=== PATIENT | female | born 1985 | race Hispanic/Latino ===

== ENCOUNTER 2022-10-16 21:51 | Emergency (ER) | payer SELFPAY ==
[~2022-10-16] VITALS: Ht 160 cm; Wt 81.6 kg
[2022-10-16] MEDS ORDERED: TRAMADOL HCL 50 MG TAB PO STA (23:29)
[2022-10-16] MEDS ORDERED: ULTRAM 50MG50 MG PO (23:33)
[2022-10-16] MEDS ORDERED: TRAMADOL HCL 50 MG TAB ONE (23:48)
== END 2022-10-16 23:36 | disposition home or self-care (01) ==
LOC: ER 22:20
DX: M25.561 Pain in right knee (principal); Z88.1 Allergy status to other antibiotic agents
CPT/HCPCS: 99283

== ENCOUNTER 2022-11-29 02:58 | Emergency (ER) | payer SELFPAY ==
[~2022-11-29] VITALS: Ht 160 cm; Wt 81.6 kg
[~2022-11-29 02:58] MED LIST: ULTRAM 50MG50 MG PO
[2022-11-29] MEDS ORDERED: ONDANSETRON HCL 4 MG ORAL DISINTEGRATING TAB ONE ×2 (03:03→03:13)
[2022-11-29] MEDS ORDERED: ONDANSETRON HCL 4 MG ORAL DISINTEGRATING TAB PO ONE (03:15)
[2022-11-29] MEDS ORDERED: ONDANSETRON ODT4 MG PO (04:13)
== END 2022-11-29 04:26 | disposition home or self-care (01) ==
LOC: ER 03:03
DX: R11.2 Nausea with vomiting, unspecified (principal)
CPT/HCPCS: 99283; Q0162

== ENCOUNTER 2024-10-08 18:41 | Emergency (ER) | payer SELFPAY ==
[~2024-10-08] VITALS: Ht 160 cm; Wt 81.6 kg
[~2024-10-08 18:41] MED LIST changes: +ONDANSETRON ODT4 MG PO
[2024-10-08 19:14] VITALS: PULSE 88; RESP 16; TEMP 99.6; O2SAT 99
[2024-10-08] MEDS: SODIUM CHLORIDE 0.9% 1000ML 1,000 ML IV ONE ×2 (19:29→19:37)
[2024-10-08] MEDS: ACETAMINOPHEN 325 MG TAB PO ONE (19:29)
[2024-10-08 19:46] LABS: BASOPHILS % 0.6 % (0.0-1.0); EOSINOPHILS # (AUTO) 0.1 (0.0-0.4); EOSINOPHILS % 1.5 % (0.0-6.0); HEMATOCRIT 41.6 % (34.2-44.1); HEMOGLOBIN 14.6 g/dL (12.0-16.0); LYMPHOCYTES # (AUTO) 0.4 (1.0-3.2); LYMPHOCYTES % 5.5 % (18.0-39.1); MEAN CORPUSCULAR HEMOGLOBIN 32.4 pg (28-32); MEAN CORPUSCULAR HGB CONC 35.1 g/dL (31-35); MEAN CORPUSCULAR VOLUME 92.4 fL (81-99); MONOCYTES # (AUTO) 0.5 (0.2-0.8); MONOCYTES % 6.9 % (4.4-11.3); NEUTROPHILS # (AUTO) 5.8 (2.1-6.9); NEUTROPHILS % 85.1 % (38.7-80.0); PLATELET COUNT 265 x10e3/uL (140-360); WHITE BLOOD COUNT 6.85 x10e3/uL (4.8-10.8)
[2024-10-08 20:02] LABS: CORONAVIRUS COVID-19 AG NEGATIVE (NEGATIVE); INFLUENZA B AG NEGATIVE (NEGATIVE); STREPTOCOCCUS GRP A ANTIGEN NEGATIVE (NEGATIVE)
[2024-10-08 20:03] LABS: INFLUENZA A AG POSITIVE (NEGATIVE)
[2024-10-08 20:07] LABS: ALBUMIN 4.1 g/dL (3.5-5.0); ALBUMIN/GLOBULIN RATIO 1.2 (0.8-2.0); BILIRUBIN,TOTAL 1.2 mg/dL (0.2-1.2); CALCIUM 9.2 mg/dL (8.4-10.2); CREATININE, SERUM 0.84 mg/dL (0.57-1.11); TOTAL PROTEIN 7.5 g/dL (6.5-8.1)
[2024-10-08 20:26] LABS: BILIRUBIN,URINE SMALL (NEGATIVE); CLARITY,URINE CLEAR (CLEAR); COLOR,URINE YELLOW (YELLOW); GLUCOSE, URINE NEGATIVE (NEGATIVE); KETONES,URINE NEGATIVE (NEGATIVE); LEUKOCYTE ESTERASE ,URINE TRACE (NEGATIVE); NITRITE,URINE NEGATIVE (NEGATIVE); PH,URINE 7 (5 - 7); PREGNANCY TEST, URINE NEGATIVE (NEGATIVE); PROTEIN,URINE DIPSTICK TRACE (NEGATIVE); URINE UROBILINOGEN 2 mg/dL (0.2 - 1)
[2024-10-08 20:28] LABS: BACTERIA,URINE FEW /HPF; EPITHELIAL CELLS,URINE MODERATE /LPF; RBC,URINE 0-5 /HPF (0-5); WBC,URINE (MAN) 0-5 /HPF (0-5)
[2024-10-08 20:29] LABS: MUCUS,URINE MODERATE
[2024-10-08] MEDS ORDERED: TAMIFLU75 MG PO (20:47)
== END 2024-10-08 21:35 | disposition home or self-care (01) ==
LOC: ER 18:50
DX: R50.9 Fever, unspecified (principal); J10.1 Influenza due to other identified influenza virus with other respiratory manifestations; R05.9 Cough, unspecified; R11.2 Nausea with vomiting, unspecified; R51.9 Headache, unspecified; R53.81 Other malaise; Z11.52 Encounter for screening for COVID-19
CPT/HCPCS: 36415; 80053; 81001; 81025; 83518; 85025; 87070; 87428; 99284; J7030